=== PATIENT | male | born 1940 | race Caucasian/White ===

== ENCOUNTER 2016-08-12 03:27 | Emergency (ER) | payer MEDICARE ==
[~2016-08-12] VITALS: Ht 175.3 cm; Wt 111.4 kg
[~2016-08-12 03:27] MED LIST: ASPI-973 PO; ATEN25TA PO; LOSA25TA21 PO; METF500T4 PO
--- NOTE | 2016-08-12 03:29 | ED.REPORT ---
HPI-General Illness Date of Service Aug 12, 2016 ED Provider: Tyler Valenzuela MD Pt is a 75 y.o. male with a hx of HTN who presents to the ED c/o chest pain onset 30 minutes prior to arrival. Pt states that the chest pain woke him up and radiates to his jaw, he reports associated SOB. He denies abdominal pain nausea vomiting or diaphoresis.. Denies a hx of GERD. Past history is of "prediabetes" also hypertension. He has chronic edema since his young adulthood , without change. No other acute risk factors for coronary disease. Nursing Notes Stated Complaint: CHEST PAIN Nursing Notes Reviewed: Yes Allergies: Coded Allergies: No Known Allergies (Verified Allergy, Unknown, 09/10/13) Scheduled Aspirin (Aspirin) 81 Mg Tablet.dr 81 MG PO DAILY Atenolol (Atenolol) 25 Mg Tablet 25 MG PO DAILY Losartan Potassium (Losartan Potassium) 25 Mg Tablet 25 MG PO DAILY Metformin (Metformin) 500 Mg Tablet 500 MG PO BIDWM Omeprazole (Omeprazole) 20 Mg Tablet.dr 20 MG PO BID General Time Seen by MD: 03:28 Chief Complaint Chest pain Hx Obtained From: Patient Arrived By: Walk-in Sudden in Onset?: Yes Onset Occurred: 16 - 30 minutes ago Symptom Duration: Since onset Location: : Chest Quality: Painful Radiation: : Jaw Severity: Current: Severe Recent Healthcare: No recent doctor visit, No recent hospitalization Similar Sx Previous: No Past Medical History Past Medical History Prediabetes Reports: Hypertension Past Surgical History Left knee Ambulatory Status Independent Review of Systems Full Review of Systems Constitutional: Denies: Fever Respiratory: Reports: Pleuritic pain (mild), Shortness of breath, Denies: Dyspnea on exertion, Parox nocturnal dyspnea Cardiovascular: Reports: Chest pain GI: Denies: Abdominal pain, Nausea, Vomiting Complete sys rev & neg: except as marked. Physical Exam Vital Signs Vital Signs Date Time Temp Pulse Resp B/P Pulse Ox O2 Delivery O2 Flow Rate FiO2 08/12/16 04:04 87 15 138/59 95 Nasal Cannula 2 Initial VS: Reviewed Head / Eyes: Atraumatic, Normocephalic Extremities: Vascular intact, Neuro intact Skin: Warm, Dry, No cyanosis Neurologic: Alert, Oriented, Nonfocal Psychiatric: Mood/affect normal, Behavior normal, Normal thought content General/Constitutional: Awake, Alert, Well appearing, Well developed, Well hydrated, Well nourished, Not toxic appearing Appearance / Presentation: Positive: Uncomfortable Flushed Respiratory / Chest: Atraumatic, Breath sounds NL, Breath sounds = bilat, No respiratory distress Cardiovascular: Heart rate NL, Regular rhythm, Heart sounds NL, Cap refill not delayed, Peripheral circulation NL Lower Ext Edema: Positive: Bilateral 3+ (Chronic) Abdomen: Atraumatic, Soft, Non-tender, No distention Interpretation & Diagnostics Lab Results Interpretation Result Diagram: 08/12/16 0340 08/12/16 0405 Test 08/12/16 03:40 08/12/16 04:05 08/12/16 05:25 White Blood Count 8.3th/mm3 (3.8-10.1) Red Blood Count 4.64mil/mm3 (4.40-5.80) Hemoglobin 15.9g/dL (13.8-17.2) Hematocrit 46.5% (41.0-50.0) Mean Corpuscular Volume 100.2fL (81-100) Mean Corpuscular Hemoglobin 34.3pg (27.0-35.0) Mean Corpuscular Hemoglobin Concent 34.2% (32.0-37.0) Red Cell Distribution Width 12.9% (12.3-15.4) Platelet Count 116bil/L (150-400) Neutrophils (%) (Auto) 60.5% (40-74) Lymphocytes (%) (Auto) 22.8% (14-46) Monocytes (%) (Auto) 10.1% (4-12) Eosinophils (%) (Auto) 5.8% (0-5) Basophils (%) (Auto) 0.6% (0-3) Prothrombin Time 12.2sec (8.1-12.5) Prothromb Time International Ratio 1.14ratio Activated Partial Thromboplast Time 27.8sec (22.8-33.0) D-Dimer < 0.50mg/L FEU (<0.50) Hold Kincaid Top Tube Received (Received) Sodium Level 140mEq/L (134-144) Potassium Level 4.4mEq/L (3.5-5.2) Chloride Level 103mEq/L (97-108) Carbon Dioxide Level 20mmol/L (18-29) Blood Urea Nitrogen 10mg/dL (8-27) Creatinine 0.61mg/dL (0.76-1.27) Estimat Glomerular Filtration Rate 138mL/min (>59) Glucose Level 137mg/dL (60-99) Calcium Level 9.4mg/dL (8.5-10.1) Magnesium Level 1.8mg/dL (1.6-2.6) Total Bilirubin 0.5mg/dL (0.0-1.2) Aspartate Amino Transf (AST/SGOT) 62U/L (0-50) Alanine Aminotransferase (ALT/SGPT) 57U/L (0-44) Alkaline Phosphatase 105U/L (25-160) Pro-B-Type Natriuretic Peptide 111.4pg/mL (0-376) Total Protein 7.3g/dL (6.4-8.4) Albumin 3.5g/dL (3.4-5.0) Troponin T 0.010ug/L (0.0-0.011) ECG Interpretation Time: 03:32 Interpreted by: ED physician Normal ECG Interpretation: Normal rate (70), Normal sinus rhythm, No acute ischemic changes Time: 05:19 Interpreted by: ED physician Normal ECG Interpretation: Normal rate (73), Normal sinus rhythm, No acute ischemic changes Repeat ECG: Repeat ECG unchanged X-Ray Chest Interpretation Chest Xray Interpretation: IMPRESSION: No acute cardiopulmonary disease. Interpretation / Wet Read by: Wet read ED physician Re-Eval/Medical Decision Med Decision/Clinical Course 75-year-old with no prior cardiac history, but hypertension and borderline diabetes, presents with chest pain rating to his jaw. He has a completely normal cardiogram 2, negative enzymes 2. He is at this point low risk for acute coronary syndrome this evening. He needs a stress test to complete his evaluation. Stronger suspicion of esophageal spasm the setting a supine posture. Begin omeprazole twice daily. Follow up with PCP by phone today for stress test arrangements. Prompt return for recurrent symptoms. Caffeine and acid food avoidance discussed. Omeprazole twice a day Source of Hx: Old records Time of Eval: 05:11 Re-Evaluation/Progress Note: Pt rechecked. Pt's pain is improved after morphine and nitro. Time of Eval: 05:40 Re-Evaluation/Progress Note: Discussed need for repeat troponin with pt, he understands and agrees with plan. Counseled Regarding: Diagnosis, Lab results Discharge & Departure Shift Change Sign-Out Response to Therapy: Improved Primary Impression: Chest pain Chest pain type: unspecified Qualified Code: R07.9 - Chest pain, unspecified Disposition: Home Discharge Condition All VS Reviewed: Yes Condition: Improved Patient Instructions: Esophageal Spasm (ED), Chest Pain (ED) Referrals: Zee York (PCP) Mag Attestation Portions of this note were transcribed by Bj Mccrary. I, Dr. Valenzuela personally performed the history, physical exam and medical decision-making; I reviewed and confirmed the accuracy of the information in the transcribed note. Signed by: Mag Lynn, 08/12/16 and 604. copies to: Zee York Christopher W MD Aug 12, 2016 03:29 BJ MCCRARY Aug 12, 2016 03:34
[2016-08-12] MEDS ORDERED: Pantoprazole 4 mg/mL 10 mL Inj IVPUSH ONE (03:35)
[2016-08-12] MEDS ORDERED: Nitroglycerin 2% 1 Gm Ointment TOPICAL SCH (03:35)
[2016-08-12 03:47] LABS: BASOPHILS % (AUTO) 0.6 % (0-3); EOSINOPHILS % (AUTO) 5.8 % (0-5); MONOCYTES % (AUTO) 10.1 % (4-12); Mean Corpuscular Hemoglobin 34.3 pg (27.0-35.0); Mean Corpuscular Volume 100.2 fL (81-100); NEUTROPHILS % (AUTO) 60.5 % (40-74); Platelet Count 116 bil/L (150-400)
[2016-08-12 04:04] VITALS: BP_SYST 138; BP_SYST 90; BP_DIAS 43; BP_DIAS 59; PULSE 87; RESP 15; O2SAT 95
[2016-08-12 04:10] LABS: INR 1.14 ratio
[2016-08-12 04:13] LABS: D-Dimer < 0.50 mg/L FEU (<0.50)
[2016-08-12 04:36] LABS: TROPONIN T 0.01 ug/L (0.0-0.011)
[2016-08-12 04:47] LABS: Magnesium 1.8 mg/dL (1.6-2.6)
[2016-08-12] MEDS ORDERED: OMEP20TA86 PO (06:41)
[2016-08-12 07:03] VITALS: BP 134/54; PULSE 78; RESP 21; O2SAT 95
--- NOTE | 2016-08-12 09:22 | DRSVH ---
PROCEDURE: X-RAY CHEST ONE VIEW, PORTABLE ([id number]) INDICATIONS: CHEST PAIN TECHNIQUE: One view of the chest was acquired. COMPARISON: None. FINDINGS: Surgical changes and devices: None. Lungs and pleura: No pleural effusions or pneumothorax. Lungs are clear. Mediastinum: Mediastinal contours appear normal. Heart size is normal. Bones and chest wall: No suspicious bony lesions. Overlying soft tissues appear unremarkable. IMPRESSION: No acute cardiopulmonary disease. Dictated by: Dominic Fuentes [facility] Interpreted: Wyatt Mccarthy MD on 08/12/2016 at 9:21 Transcribed by: AMERICO on 08/12/2016 at 9:21 Approved by: Wyatt Mccarthy M.D. on 08/12/2016 at 9:48
== END 2016-08-12 06:55 | disposition home or self-care (01) ==
LOC: SED 03:27
DX: R07.9 Chest pain, unspecified (principal); R06.02 Shortness of breath; R73.09 Other abnormal glucose; I10 Essential (primary) hypertension; R60.9 Edema, unspecified; Z87.891 Personal history of nicotine dependence; Z79.84 Long term (current) use of oral hypoglycemic drugs; Z79.82 Long term (current) use of aspirin
CPT/HCPCS: 36415; 71010; 80053; 83735; 83880; 84484; 85025; 85378; 85610; 85730; 93005; 96372; 96374; 99285; J2270